=== PATIENT | male | born 1975 | race Caucasian/White ===

== ENCOUNTER 2021-03-07 15:24 | Emergency (ER) | payer OTHER ==
[~2021-03-07] VITALS: Wt 81.6 kg
[~2021-03-07 15:24] MED LIST: AMOXICILLIN500 MG PO; KEFLEX500 MG PO; TARKA 2 MG-2401 TER; VICODIN 5/500 505 MG PO; ZITHROMAX Z PA250 MG PO
[2021-03-07] MEDS ORDERED: CEPHALEXIN500 M1 PO ×2 (19:12→19:13)
== END 2021-03-07 19:07 | disposition home or self-care (01) ==
LOC: ED 15:24
DX: S01.01XA Laceration without foreign body of scalp, initial encounter (principal); W20.8XXA Other cause of strike by thrown, projected or falling object, initial encounter; Y93.89 Activity, other specified; Y92.89 Other specified places as the place of occurrence of the external cause; Y99.8 Other external cause status